=== PATIENT | male | born 1960 | race Caucasian/White ===

== ENCOUNTER 2022-02-10 14:32 | Emergency (ER) | payer OTHER ==
[~2022-02-10] VITALS: Wt 81.6 kg
== END 2022-02-10 15:51 | disposition home or self-care (01) ==
LOC: ED 14:32
DX: S81.012A Laceration without foreign body, left knee, initial encounter (principal); W45.8XXA Other foreign body or object entering through skin, initial encounter; Y93.89 Activity, other specified; Y92.89 Other specified places as the place of occurrence of the external cause; Y99.8 Other external cause status